=== PATIENT | male | born 1970 | race African-American/Black ===

== ENCOUNTER 2016-03-20 13:51 | Inpatient (IN) | payer SELFPAY ==
[~2016-03-20] VITALS: Ht 188 cm; Wt 138.0 kg
[2016-03-20] VITALS (11 sets, daily range): BP systolic 117–255; BP diastolic 76–137; PULSE 73–86; RESP 14–20; TEMP 96.2–98.6; O2SAT 96–100
[~2016-03-20 13:51] MED LIST: ERYT250 PO; GUAI100S6 PO; Z.0.NO CURRENT MEDS
[2016-03-20] MEDS ORDERED: SODIUM CHLORIDE 0.9% FLUSH 5 ML FLUSH IVF PRN (14:45)
--- NOTE | 2016-03-20 15:06 | PD ---
HPI Chief Complaint: Chest Pain Time Seen by Provider: 15:02 Travel History International Travel<30 days: No Contact w/Intl Traveler<30days: No Traveled to known affect area: No History of Present Illness HPI Patient is a 45-year-old male who presents emergency for evaluation of chest pain. Patient states the pain started this morning while he was at work. Patient describes the pain as pressure-like and something sitting on his chest. Initially the pain was a 7 out of 10, currently he reports the pain is 3 out of 10. Patient denies any fever, chills, nausea, vomiting, coughing, shortness of breath, headache, radiating pain. He further denies any diaphoresis. Patient states he was just diagnosed with high blood pressure, he is uncertain of the medication name but he is supposed be taking it twice a day and he's only been taking it once daily when he remembers. Patient endorses marijuana use. PFSH Past Medical History Asthma: Yes Diminished Hearing: No Hypertension: Yes Medical other: Yes (obesity) Past Surgical History Surgical History: No Previous Surgery Social History Alcohol Use: Yes (WEEKENDS 12 PK BEER/LAST ) Tobacco Use: Yes (QUIT 3 WKS AGO) Substance Use: Yes (marijuana) Allergies-Medications (Allergen,Severity, Reaction): Coded Allergies: No Known Allergies (Verified , 03/20/16) Reported Meds & Prescriptions Reported Meds & Active Scripts Active Robitussin Ac (Guaifenesin/Codeine Phosphate) Syrp 10 Ml PO Q6HPRN FOR COUGH Vlad-Tab (Erythromycin) 250 Mg Tabec 250 Mg PO QID 10 Days Reported No Current Meds (Miscellaneous Medication) [facility] Review of Systems Except as stated in HPI: all other systems reviewed are Neg General / Constitutional: No: Fever, Chills Eyes: No: Visual changes HENT: No: Headaches, Lightheadedness Cardiovascular: Positive: Chest Pain or Discomfort, No: Diaphoresis, Syncope, Edema Respiratory: No: Shortness of Breath Gastrointestinal: No: Nausea, Vomiting, Diarrhea, Abdominal Pain Musculoskeletal: No: Myalgias Neurologic: No: Weakness, Dizziness, Syncope Physical Exam Narrative GENERAL: Obese, well-developed, alert gentleman. Resting comfortably in no acute distress. SKIN: Warm and dry. HEAD: Atraumatic. Normocephalic. EYES: Pupils equal and round. No scleral icterus. No injection or drainage. ENT: No nasal bleeding or discharge. Mucous membranes pink and moist. NECK: Trachea midline. No JVD. CARDIOVASCULAR: Regular rate and rhythm. No murmur appreciated. RESPIRATORY: No accessory muscle use. Clear to auscultation. Breath sounds equal bilaterally. GASTROINTESTINAL: Abdomen obese, soft, non-tender, nondistended. Hepatic and splenic margins not palpable. Positive bowel sounds, no rebound, no guarding. MUSCULOSKELETAL: No obvious deformities. No clubbing. No cyanosis. No edema. NEUROLOGICAL: Awake and alert. No obvious cranial nerve deficits. Motor grossly within normal limits. Normal speech. PSYCHIATRIC: Appropriate mood and affect; insight and judgment normal. Data Data Last Documented VS Vital Signs Date Time Temp Pulse Resp B/P Pulse Ox O2 Delivery O2 Flow Rate FiO2 03/20/16 17:32 79 16 225/118 100 Room Air 03/20/16 15:58 98.6 03/20/16 14:57 2 Orders Electrocardiogram (03/20/16 14:36) Ckmb (Isoenzyme) Profile (03/20/16 14:36) Complete Blood Count With Diff (03/20/16 14:36) Comprehensive Metabolic Panel (03/20/16 14:36) Magnesium (Mg) (03/20/16 14:36) Prothrombin Time / Inr (Pt) (03/20/16 14:36) Act Partial Throm Time (Ptt) (03/20/16 14:36) Troponin I (03/20/16 14:36) Lipase (03/20/16 14:36) Ecg Monitoring (03/20/16 14:36) Bilateral Bp Monitoring (03/20/16 14:36) Iv Access Insert/Monitor (03/20/16 14:36) Oximetry (03/20/16 14:36) Oxygen Administration (03/20/16 14:36) Sodium Chloride 0.9% Flush (Ns Flush) (03/20/16 14:45) Chest, Single Ap (03/20/16 ) Metoprolol Tartrate Inj (Lopressor Inj) (03/20/16 15:45) CKMB (03/20/16 15:15) CKMB% (03/20/16 15:15) Hydralazine Inj (Apresoline Inj) (03/20/16 16:30) Metoprolol Tartrate Inj (Lopressor Inj) (03/20/16 17:15) Admit Order (Ed Use Only) (03/20/16 17:31) Labs Laboratory Tests Test 03/20/16 15:15 White Blood Count 7.9 TH/MM3 Red Blood Count 4.43 MIL/MM3 Hemoglobin 12.2 GM/DL Hematocrit 36.5 % Mean Corpuscular Volume 82.5 FL Mean Corpuscular Hemoglobin 27.5 PG Mean Corpuscular Hemoglobin 33.4 % Concent Red Cell Distribution Width 14.2 % Platelet Count 251 TH/MM3 Mean Platelet Volume 8.3 FL Neutrophils (%) (Auto) 58.2 % Lymphocytes (%) (Auto) 31.4 % Monocytes (%) (Auto) 6.0 % Eosinophils (%) (Auto) 3.8 % Basophils (%) (Auto) 0.6 % Neutrophils # (Auto) 4.6 TH/MM3 Lymphocytes # (Auto) 2.5 TH/MM3 Monocytes # (Auto) 0.5 TH/MM3 Eosinophils # (Auto) 0.3 TH/MM3 Basophils # (Auto) 0.0 TH/MM3 CBC Comment DIFF FINAL Differential Comment Prothrombin Time 10.6 SEC Prothromb Time International 1.0 RATIO Ratio Activated Partial 29.0 SEC Thromboplast Time Sodium Level 139 MEQ/L Potassium Level 3.5 MEQ/L Chloride Level 101 MEQ/L Carbon Dioxide Level 34.0 MEQ/L Anion Gap 4 MEQ/L Blood Urea Nitrogen 13 MG/DL Creatinine 1.35 MG/DL Estimat Glomerular Filtration 70 ML/MIN Rate Random Glucose 94 MG/DL Calcium Level 8.8 MG/DL Magnesium Level 2.1 MG/DL Total Bilirubin 0.2 MG/DL Aspartate Amino Transf 22 U/L (AST/SGOT) Alanine Aminotransferase 27 U/L (ALT/SGPT) Alkaline Phosphatase 82 U/L Total Creatine Kinase 349 U/L Creatine Kinase MB 2.1 NG/ML Creatine Kinase MB % 0.6 % Troponin I 0.03 NG/ML B-Type Natriuretic Peptide 90 PG/ML Total Protein 8.4 GM/DL Albumin 4.0 GM/DL Lipase 114 U/L MDM Medical Decision Making Medical Screen Exam Complete: Yes Emergency Medical Condition: Yes Interpretation(s) Vital Signs Date Time Temp Pulse Resp B/P Pulse Ox O2 Delivery O2 Flow Rate FiO2 03/20/16 14:57 98 Nasal Cannula 2 03/20/16 14:57 86 18 117/82 98 Nasal Cannula 2 03/20/16 14:27 96.2 73 18 188/131 97 Differential Diagnosis AMI versus unstable angina versus pleurisy versus chest wall pain versus other Narrative Course Patient is a 45-year-old male who presented to emergency, the EMS for evaluation of chest pain. Chest pain started this morning while he was at work , it has eased up somewhat since this morning. Patient was given 324 of aspirin by EMS. Labs, imaging, EKG ordered. Patient moved to medical bed, his blood pressure was assessed at 244/116, patient received Lopressor, hydralazine , enalapril for his elevated blood pressure. Pressure is beginning to normalize , clonidine by mouth ordered. Due to multiple cardiac risk factors it is advisable for pt to stay to continue to trend enzymes, ekg in the [facility]. Discussed with residents who accepted admission, due to uncontrolled blood pressure he would is more appropriate for medical bed. Patient continues to be chest pain-free. Patient is agreeable to inpatient stay. Family at bedside. Diagnosis Primary Impression: Chest pain Qualified Code: R07.89 - Other chest pain Additional Impression: Hypertensive emergency Admitting Information Admitting Physician Requests: Observation Condition: Stable Kesha Crooks Mar 20, 2016 15:06
--- NOTE | 2016-03-20 15:30 | RADRPT ---
EXAM DATE/TIME: 03/20/2016 15:02 [facility] COMPARISON: No previous studies available for comparison. INDICATIONS : Chest pain. MEDICAL HISTORY : high blood pressure. SURGICAL HISTORY : None. ENCOUNTER: Initial ACUITY: 1 day PAIN SCORE: 6/10 LOCATION: Bilateral chest FINDINGS: The lungs appear mildly hypoinflated. The lungs are otherwise grossly clear. The heart size is at the upper limits of normal. Pulmonary vasculature appears normal. Osseous structures are unremarkable. CONCLUSION: No acute disease. Holly Bolanos MD on March 20, 2016 at 15:27 Board Certified Radiologist. This report was verified electronically.
[2016-03-20] MEDS ORDERED: METOPROLOL TARTRATE 5 MG/5 ML VIAL IV PUSH ONE (15:45)
[2016-03-20 16:00] LABS: AUTOMATED NEUTROPHIL # 4.6 TH/MM3 (1.8-7.7); BASOPHIL % 0.6 % (0.0-2.0); EOSINOPHIL # 0.3 TH/MM3 (0-0.4); EOSINOPHIL % 3.8 % (0.0-4.0); HEMATOCRIT 36.5 % (39.0-51.0); HEMO FLAGS DIFF FINAL; LYMPH % 31.4 % (9.0-44.0); LYMPHOCYTE # 2.5 TH/MM3 (1.0-4.8); MEAN CELL VOLUME 82.5 FL (80.0-100.0); MEAN CORPUSCULAR HEMOGLOBIN 27.5 PG (27.0-34.0); MEAN CORPUSCULAR HGB CONC 33.4 % (32.0-36.0); NEUT % 58.2 % (16.0-70.0); PLATELET COUNT 251 TH/MM3 (150-450); RED BLOOD COUNT 4.43 MIL/MM3 (4.50-5.90); RED CELL DISTRIBUTION WIDTH 14.2 % (11.6-17.2); WHITE BLOOD COUNT 7.9 TH/MM3 (4.0-11.0)
[2016-03-20 16:12] LABS: ALT (GPT) 27 U/L (12-78); ANION GAP 4 MEQ/L (5-15); AST (GOT) 22 U/L (15-37); BLOOD UREA NITROGEN 13 MG/DL (7-18); CHLORIDE 101 MEQ/L (98-107); GLOMERULAR FILTRATION RATE 70 ML/MIN (>89); MAGNESIUM 2.1 MG/DL (1.5-2.5); POTASSIUM 3.5 MEQ/L (3.5-5.1); SODIUM (NA) 139 MEQ/L (136-145)
[2016-03-20 16:16] LABS: ALKALINE PHOSPHATASE 82 U/L (45-117); CREATINE KINASE 349 U/L (39-308); TOTAL BILIRUBIN ADULT 0.2 MG/DL (0.2-1.0)
[2016-03-20 16:28] LABS: CKMB 2.1 NG/ML (0.5-3.6)
[2016-03-20] MEDS ORDERED: hydrALAZINE HCL 20 MG/ML VIAL IV PUSH ONE (16:30)
[2016-03-20] MEDS: METOPROLOL TARTRATE 5 MG/5 ML VIAL IVS SCH ×2 (17:15→17:55)
[2016-03-20 17:16] LABS: PROTHROMBIN TIME - PATIENT 10.6 SEC (9.8-11.6)
--- NOTE | 2016-03-20 17:29 | HHI.HP ---
[facility] Service Family Medicine Primary Care Physician No Primary Care Physician Admission Diagnosis Diagnoses: International Travel<30 Days: No Contact w/Intl Traveler<30days: No Known Affected Area: No History of Present Illness 45y male with HTN and asthma presents with chest pain x1 day. It is a sternal, non-radiating chest tightness that began at his shift at work this morning. It decreased somewhat with time, but is still present several hours in the ED. Relieved minimally by "relaxing" but not much by medications so far given in ED. No exacerbating factors, even exercise- he rode his bike 20 minutes home from work without change in this pain. He denies history of GERD or acid burning in stomach. Does report burping and feeling acid sensation. He also presented to ED with hypertensive emergency, with B/P 260/ 120. Denies KAT, blurry vision, nausea, vomiting, or palpitations. Diagnosed with hypertension 2 months ago when he presented to the [facility] with headache and dizziness. Prescribed a twice day medicine, "starts with C", he takes once a day. Review of Systems Constitutional: COMPLAINS OF: Weight loss (intentional), DENIES: Fever, Chills , Dizziness Eyes: DENIES: Blurred vision, Double Vision Respiratory: COMPLAINS OF: Snoring, Shortness of breath (baseline), DENIES: Cough, Wheezing, Sputum production Cardiovascular: COMPLAINS OF: Chest pain, DENIES: Palpitations, Syncope, Dyspnea on Exertion, Lower Extremity Edema, Claudication Gastrointestinal: DENIES: Abdominal pain, Nausea, Vomiting Integumentary: DENIES: Abnormal pigmentation Neurologic: DENIES: Headache, Localized weakness, Speech Problems Psychiatric: DENIES: Mood changes Past Family Social History Past Medical History Absent from medical care HTN Asthma Likely sleep apnea "falls asleep anywhere" Past Surgical History Denies Reported Medications "Blood pressure medicine starts with c" BID (clonidine? cardiazem?) Allergies: Coded Allergies: No Known Allergies (Verified , 03/20/16) Family History Mother- HTN, pre-diabetes Father- unknown Sister- healthy Social History Works at [employer], used to work for [employer] Tobacco: denies Alcohol: 1x/week, occasional beer RD: Marijuana, denies cocaine Physical Exam Vital Signs Vital Signs Date Time Temp Pulse Resp B/P Pulse Ox O2 Delivery O2 Flow Rate FiO2 03/20/16 17:09 79 16 255/137 100 Room Air 03/20/16 16:21 82 16 211/116 98 Room Air 03/20/16 15:58 98.6 76 16 233/124 98 Room Air 03/20/16 14:57 98 Nasal Cannula 2 03/20/16 14:57 78 18 121/76 98 Room Air 03/20/16 14:57 86 18 117/82 98 Nasal Cannula 2 03/20/16 14:27 96.2 73 18 188/131 97 Physical Exam CONST: Obese AA male in NAD. DERM: Warm and dry HEENT: PERRL. EOMI. No nystagmus. MMM CV: RRR. No murmurs or gallops. Radial pulses 2+. Chest pain not reproducible by palpation or inspiration. RESP: Good air movement. Lungs CTAB. No wheezing. GI: Abdomen obese, soft. Mild tenderness to palpation RUQ. No hepatomegally. + BS MSK: Moves all four limbs against gravity. NEURO: No focal deficits. AAOx3. No facial droop. 5/5 strength UE/LE. SILT x4. Motor and sensory function grossly intact. PSYCH: Appropriate affect. Limited knowledge of medicine, but good insight Laboratory Laboratory Tests Test 03/20/16 15:15 White Blood Count 7.9 Red Blood Count 4.43 Hemoglobin 12.2 Hematocrit 36.5 Mean Corpuscular Volume 82.5 Mean Corpuscular Hemoglobin 27.5 Mean Corpuscular Hemoglobin 33.4 Concent Red Cell Distribution Width 14.2 Platelet Count 251 Mean Platelet Volume 8.3 Neutrophils (%) (Auto) 58.2 Lymphocytes (%) (Auto) 31.4 Monocytes (%) (Auto) 6.0 Eosinophils (%) (Auto) 3.8 Basophils (%) (Auto) 0.6 Neutrophils # (Auto) 4.6 Lymphocytes # (Auto) 2.5 Monocytes # (Auto) 0.5 Eosinophils # (Auto) 0.3 Basophils # (Auto) 0.0 CBC Comment DIFF FINAL Differential Comment Prothrombin Time 10.6 Prothromb Time International 1.0 Ratio Activated Partial 29.0 Thromboplast Time Sodium Level 139 Potassium Level 3.5 Chloride Level 101 Carbon Dioxide Level 34.0 Anion Gap 4 Blood Urea Nitrogen 13 Creatinine 1.35 Estimat Glomerular Filtration 70 Rate Random Glucose 94 Calcium Level 8.8 Magnesium Level 2.1 Total Bilirubin 0.2 Aspartate Amino Transf 22 (AST/SGOT) Alanine Aminotransferase 27 (ALT/SGPT) Alkaline Phosphatase 82 Total Creatine Kinase 349 Creatine Kinase MB 2.1 Creatine Kinase MB % 0.6 Troponin I 0.03 Total Protein 8.4 Albumin 4.0 Lipase 114 Result Diagram: 03/20/16 1515 03/20/16 1515 Imaging Last Impressions Chest X-Ray 03/20/16 0000 Signed Impressions: Service Date/Time: Sunday, March 20, 2016 15:02 - CONCLUSION: No acute disease. Holly Bolanos MD Assessment and Plan Assessment and Plan 45y AA male with HTN and asthma presents with chest pain. Code Status Full Discussed Condition With DW: Dr. Lawrence, Dr. Maher Problem List: (1) Hypertensive emergency Status: Acute Plan: On admit, B/P 260/120. Lower B/P slowly. Goal SBP <220. Plan -Admit to observation -Vitals q4h, Monitor I/O, OOB ad susy, Heart Healthy Diet -ACS rule out, trend Trops, CK, EKG x3 Trop-1: 0.03 CK-MB-1: wnl EKG-1: -BNP pending -U/A, UDS pending -S/p metoprolol IV x2, hydralazine 10mg IV x1, vasotec 5mg IV x1 in ED -Enalapril PRN for SBP 220+ -Consider discharge with thiazide vs CCB (2) Chest pain Status: Acute Plan: Sternal nonradiating chest pain x1 day. Ddx: Symptomatic HTN emergency vs GERD vs ACS vs Anxiety -Ranitidine 150mg BID for GERD ppx -see HTN emergency (3) Asthma Status: Chronic Plan: -Albuterol neb q4h PRN (4) Creatinine elevation Status: Acute Plan: Unknown baseline. Cr 1.3 on admit -MIVF -Daily BMP (5) Morbid obesity with BMI of 40.0-44.9, adult Status: Chronic Plan: -diet and exercise counseling provided (6) FEN/PPX Status: Chronic Plan: Fluids: MIVF- NS@ 180mL/hr Electrolytes: wnl Nutrition: Heart healthy diet DVT ppx: Lovenox 40mg SQ GI ppx: for gastritis, ranitidine Physician Certification 2 Midnight Certification Type: Admission for Inpatient Services Order for Inpatient Services The services are ordered in accordance with Medicare regulations or non- Medicare payer requirements, as applicable. In the case of services not specified as inpatient-only, they are appropriately provided as inpatient services in accordance with the 2-midnight benchmark. Estimated LOS (days): 2 days is the estimated time the patient will need to remain in the hospital, assuming treatment plan goals are met and no additional complications. Post-Hospital Plan: Home Problem Qualifiers (1) Chest pain: Qualified Code: R07.89 - Other chest pain (2) Asthma: Qualified Code: J45.909 - Uncomplicated asthma, unspecified asthma severity Mariann Trinidad MD R1 Mar 20, 2016 17:29
[2016-03-20] MEDS ORDERED: ENALAPRILAT 2.5 MG/2 ML VIAL IV PUSH ONE (18:00)
[2016-03-20] MEDS ORDERED: cloNIDine HCL 0.1 MG TAB PO ONE (18:45)
[2016-03-20] MEDS ORDERED: NALOXONE HCL 0.4 MG/ML AMP IV PRN (19:00)
[2016-03-20] MEDS ORDERED: SODIUM CHLORIDE 0.9% FLUSH 5 ML FLUSH FLUSH PRN (19:00)
[2016-03-20] MEDS ORDERED: ENALAPRILAT 1.25 MG/ML VIAL IV PRN (19:00)
[2016-03-20] MEDS ORDERED: ACETAMINOPHEN 325 MG TAB PO PRN (19:00)
[2016-03-20] MEDS ORDERED: RESP: ALBUTEROL 2.5 MG/3 ML NEB (SCH) NEB ONE (19:30)
[2016-03-20] MEDS ORDERED: RESP: ALBUTEROL 2.5 MG/3 ML NEB (SCH) NEB (19:30)
[2016-03-20] MEDS: SODIUM CHLORIDE 0.9% FLUSH 5 ML FLUSH FLUSH SCH (20:49)
[2016-03-20] MEDS: SODIUM CHLOR 0.9% 1000 ML INJ 1,000 ML IV SCH (20:49)
[2016-03-20] MEDS: FAMOTIDINE 20 MG TAB PO SCH ×2 (20:51→20:56)
[2016-03-21] VITALS (29 sets, daily range): BP systolic 156–222; BP diastolic 80–118; PULSE 72–86; RESP 16–22; TEMP 97.6–98.9; O2SAT 94–99
[2016-03-21] MEDS ORDERED: CLON0.1T PO (01:48)
[2016-03-21] MEDS: SODIUM CHLOR 0.9% 1000 ML INJ 1,000 ML IV SCH (01:53)
[2016-03-21 03:04] LABS: HEMATOCRIT 33.4 % (39.0-51.0); MEAN CELL VOLUME 81.6 FL (80.0-100.0); MEAN CORPUSCULAR HEMOGLOBIN 27.3 PG (27.0-34.0); MEAN CORPUSCULAR HGB CONC 33.4 % (32.0-36.0); PLATELET COUNT 238 TH/MM3 (150-450); RED BLOOD COUNT 4.09 MIL/MM3 (4.50-5.90); RED CELL DISTRIBUTION WIDTH 14.4 % (11.6-17.2); REVIEW FLAG FINAL; WHITE BLOOD COUNT 7.3 TH/MM3 (4.0-11.0)
[2016-03-21 03:46] LABS: BICARBONATE 30.7 MEQ/L (21.0-32.0); POTASSIUM 3.3 MEQ/L (3.5-5.1)
[2016-03-21] MEDS ORDERED: RESP: ALBUTEROL 2.5 MG/3 ML NEB (PRN) NEB (06:00)
[2016-03-21] MEDS ORDERED: POTASSIUM CHLORIDE 20 MEQ CONTROLLED RELEASE TAB PO ONE (07:30)
--- NOTE | 2016-03-21 08:55 | HHI.FPPN ---
Subjective Remarks Patient seen and examined this am. BP remains elevated overnight and this am. He denies CP, SOB, or difficulty breathing. Tolerated diet. No overnight events, feels well no complaints this am. (Allyn Huerta MD R3) Objective Vitals Vital Signs Date Time Temp Pulse Resp B/P Pulse Ox O2 Delivery O2 Flow Rate FiO2 03/21/16 07:26 99 21 03/21/16 05:00 74 03/21/16 04:00 74 20 182/104 94 03/21/16 03:20 185/118 03/21/16 03:15 198/115 03/21/16 03:10 215/106 03/21/16 03:05 98.6 75 20 210/108 94 03/21/16 03:00 75 03/21/16 02:00 89 16 100 03/21/16 01:49 78 18 222/107 97 Room Air 03/21/16 00:00 72 22 183/89 99 Room Air 03/20/16 22:00 82 18 160/101 99 Room Air 03/20/16 20:51 77 18 174/84 99 Room Air 03/20/16 19:00 74 16 96 Room Air 03/20/16 19:00 98.6 74 16 195/106 96 03/20/16 18:56 73 20 188/99 100 Room Air 03/20/16 17:56 78 14 209/104 100 Room Air 03/20/16 17:32 79 16 225/118 100 Room Air 03/20/16 17:09 79 16 255/137 100 Room Air 03/20/16 16:21 82 16 211/116 98 Room Air 03/20/16 15:58 98.6 76 16 233/124 98 Room Air 03/20/16 14:57 98 Nasal Cannula 2.00 03/20/16 14:57 98 Nasal Cannula 2 03/20/16 14:57 78 18 121/76 98 Room Air 03/20/16 14:57 86 18 117/82 98 Nasal Cannula 2 03/20/16 14:27 96.2 73 18 188/131 97 I/O 03/20/16 03/20/16 03/20/16 03/21/16 03/21/16 03/21/16 07:00 15:00 23:00 07:00 15:00 23:00 Intake Total 720 ml Output Total 600 ml 0 ml Balance -600 ml 720 ml Intake Oral 220 ml IV Total 500 ml Output Urine Total 600 ml 0 ml # Voids 1 (Allyn Huerta MD R3) Result Diagram: 03/21/16 0241 03/21/16 0241 Imaging Last Impressions Chest X-Ray 03/20/16 0000 Signed Impressions: Service Date/Time: Friday, March 20, 2016 15:02 - CONCLUSION: No acute disease. Holly Bolanos MD Objective Remarks GENERAL: laying down comfortably, nad SKIN: Warm and dry. HEAD: Atraumatic. Normocephalic. EYES: Pupils equal and round. No scleral icterus. No injection or drainage. ENT: No nasal bleeding or discharge. Mucous membranes pink and moist. NECK: Trachea midline. No JVD. CARDIOVASCULAR: Regular rate and rhythm. RESPIRATORY: No accessory muscle use. Clear to auscultation. Breath sounds equal bilaterally. GASTROINTESTINAL: Abdomen soft, non-tender, nondistended. Hepatic and splenic margins not palpable. MUSCULOSKELETAL: Extremities without clubbing, cyanosis, or edema. No obvious deformities. NEUROLOGICAL: Awake and alert. No obvious cranial nerve deficits. Motor grossly within normal limits. Normal speech. PSYCHIATRIC: Appropriate mood and affect; insight and judgment normal. (Allyn Huerta MD R3) A/P Assessment and Plan 45y AA male with HTN and asthma presents with chest pain found to have hypertensive urgency. Discharge Planning D/C pending stabilization of BP. Likely this evening or tomorrow am. Seen and discussed with Drs. Lawrence and Amos (Allyn Huerta MD R3) Attending Attestation Patient seen and examined. Case reviewed and discussed with the resident team, Dr Huerta, Dr Maher, Dr Trinidad and Dr Solomon. Agree with plan of care as discussed with me and documented in the resident note (Darrell Lawrence MD) Problem List: (1) Hypertensive emergency Status: Acute Plan: BP elevated overnight and this am. - Will start Norvasc 10 mg this am - Will likely need a second agent, consider adding hctz if BP remains elevated (2) Chest pain Status: Resolved Plan: Resolved. Ddx: Symptomatic HTN emergency vs GERD vs ACS vs Anxiety -ACS rule out negative, troponins negative x3, EKG shows left axis deviation ( likely from uncontrolled HTN) -See HTN emergency -admits to [facility] use, will obtain UDS to r/o cocaine use (3) Asthma Status: Chronic Plan: -Albuterol neb q4h PRN (4) Creatinine elevation Status: Resolved Plan: Unknown baseline. Cr 1.3 on admit, now 1.25 wnl - s/p IVF (5) Morbid obesity with BMI of 40.0-44.9, adult Status: Chronic Plan: -diet and exercise counseling provided (6) FEN/PPX Status: Chronic Plan: Fluids: HLIV Electrolytes: wnl Nutrition: Heart healthy diet DVT ppx: Lovenox 40mg SQ (Allyn Huerta MD R3) Problem Qualifiers (1) Chest pain: Qualified Code: R07.89 - Other chest pain (2) Asthma: Qualified Code: J45.909 - Uncomplicated asthma, unspecified asthma severity Allyn Huerta MD R3 Mar 21, 2016 08:55 Darrell Lawrence MD Mar 22, 2016 14:34
[2016-03-21] MEDS: FAMOTIDINE 20 MG TAB PO SCH ×2 (09:25→20:19)
[2016-03-21] MEDS: SODIUM CHLORIDE 0.9% FLUSH 5 ML FLUSH FLUSH SCH ×2 (09:27→20:19)
[2016-03-21] MEDS ORDERED: POTASSIUM CHLORIDE 10 MEQ CONTROLLED RELEASE TAB PO ONE (17:00)
[2016-03-21] MEDS ORDERED: HYDROCHLOROTHIAZIDE 25 MG TAB PO ONE (18:00)
[2016-03-21] MEDS: ENALAPRILAT 1.25 MG/ML VIAL IV PRN (20:20)
--- NOTE | 2016-03-21 21:19 | EKG ---
Date Performed: 03/20/2016 Time Performed: 13:48:17 PTAGE: 45 years EKG: Sinus rhythm WITH FIRST DEGREE AV BLOCK LEFT VENTRICULAR HYPERTROPHY AND ST-T CHANGE ABNORMAL ECG NO PREVIOUS TRACING DOCTOR: Darci Dow Interpretating Date/Time 03/21/2016 21:09:29
[2016-03-22] VITALS (19 sets, daily range): BP systolic 160–196; BP diastolic 98–124; PULSE 75–91; RESP 20; TEMP 97.9–98.2; O2SAT 93–98
[2016-03-22] MEDS: ENALAPRILAT 1.25 MG/ML VIAL IV PRN (06:02)
[2016-03-22] MEDS ORDERED: HYDROCHLOROTHIAZIDE 25 MG TAB PO SCH ×2 (08:00→09:00)
[2016-03-22 08:50] LABS: HEMATOCRIT 39.7 % (39.0-51.0); MEAN CELL VOLUME 81.8 FL (80.0-100.0); MEAN CORPUSCULAR HEMOGLOBIN 27.5 PG (27.0-34.0); MEAN CORPUSCULAR HGB CONC 33.7 % (32.0-36.0); PLATELET COUNT 271 TH/MM3 (150-450); RED BLOOD COUNT 4.86 MIL/MM3 (4.50-5.90); RED CELL DISTRIBUTION WIDTH 14.4 % (11.6-17.2); REVIEW FLAG FINAL; WHITE BLOOD COUNT 7.9 TH/MM3 (4.0-11.0)
[2016-03-22] MEDS: FAMOTIDINE 20 MG TAB PO SCH (08:55)
[2016-03-22] MEDS: SODIUM CHLORIDE 0.9% FLUSH 5 ML FLUSH FLUSH SCH (08:56)
[2016-03-22 09:21] LABS: BICARBONATE 28.2 MEQ/L (21.0-32.0); POTASSIUM 3.9 MEQ/L (3.5-5.1)
[2016-03-22] MEDS ORDERED: PNEUMOCOCCAL POLYVALENT INJ 25 MCG/0.5 ML SYR IM ONE (10:00)
--- NOTE | 2016-03-22 10:10 | HHI.FPPN ---
Subjective Remarks No acute issues overnight. Vitals are stable, patient remains afebrile. BP remains elevated ranging 150-190's/80-120's. Overall, he feels well this morning. He denies any chest pain, shortness of breath, fever, chills, nausea or vomiting. He is tolerating PO. Objective Vitals Vital Signs Date Time Temp Pulse Resp B/P Pulse Ox O2 Delivery O2 Flow Rate FiO2 03/22/16 07:17 98 21 03/22/16 07:00 97.9 81 196/124 93 03/22/16 06:00 91 03/22/16 05:00 91 03/22/16 04:27 98.2 82 170/113 95 03/22/16 04:00 76 03/22/16 03:00 75 03/22/16 02:00 79 03/22/16 01:00 79 03/22/16 00:00 78 03/21/16 23:00 75 03/21/16 23:00 97.7 82 156/80 97 03/21/16 22:00 80 03/21/16 21:00 81 03/21/16 20:00 86 03/21/16 19:00 83 03/21/16 19:00 98.1 85 194/112 97 03/21/16 18:07 98.1 84 16 198/108 98 03/21/16 18:00 84 03/21/16 17:00 83 03/21/16 16:00 79 03/21/16 15:23 85 03/21/16 14:06 79 03/21/16 13:42 79 03/21/16 13:24 97.6 78 18 165/103 97 03/21/16 12:00 78 03/21/16 11:49 80 I/O 03/21/16 03/21/16 03/21/16 03/22/16 03/22/16 03/22/16 07:00 15:00 23:00 07:00 15:00 23:00 Intake Total 720 ml 800 ml 1800 ml 240 ml Output Total 0 ml 450 ml 2200 ml 1400 ml Balance 720 ml 350 ml -400 ml -1160 ml Intake Oral 220 ml 400 ml 600 ml 240 ml IV Total 500 ml 400 ml 1200 ml Output Urine Total 0 ml 450 ml 2200 ml 1400 ml Result Diagram: 03/22/16 0815 03/22/16 0814 Imaging Last Impressions Chest X-Ray 03/20/16 0000 Signed Impressions: Service Date/Time: Sunday, March 20, 2016 15:02 - CONCLUSION: No acute disease. 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 SKIN: Warm and dry. HEAD: Atraumatic. Normocephalic. EYES: Pupils equal and round. No scleral icterus. No injection or drainage. ENT: No nasal bleeding or discharge. Mucous membranes pink and moist. NECK: Trachea midline. No JVD. CARDIOVASCULAR: Regular rate and rhythm. No murmur. RESPIRATORY: No accessory muscle use. Clear to auscultation bilaterally. Breath sounds equal bilaterally. GASTROINTESTINAL: Abdomen soft, non-tender, nondistended. Hepatic and splenic margins not palpable. MUSCULOSKELETAL: Extremities without clubbing, cyanosis, or edema. No obvious deformities. NEUROLOGICAL: Awake and alert. No obvious cranial nerve deficits. Motor grossly within normal limits. Normal speech. PSYCHIATRIC: Appropriate mood and affect; insight and judgment normal. A/P Assessment and Plan 45y AA male with HTN and asthma who presented with chest pain was found to have hypertensive urgency. Discharge Planning Anticipate discharge today. dw Dr. Lawrence and Dr. Trinidad Problem List: (1) Hypertensive emergency Status: Acute Plan: BP remains elevated - Continue Norvasc 10 mg PO daily - HCTZ 25mg PO daily, increase dose as needed - Counseling provided regarding DASH diet and exercise (2) Chest pain Status: Resolved Plan: Resolved. -ACS rule out negative -Likely secondary to elevated BP (3) Asthma Status: Chronic Plan: -Albuterol neb q4h PRN (4) Creatinine elevation Status: Resolved Plan: Creatinine slightly elevated at 1.35 on admission Creatinine wnl today at 1.30 (5) Morbid obesity with BMI of 40.0-44.9, adult Status: Chronic Plan: -diet and exercise counseling provided (6) FEN/PPX Status: Chronic Plan: Fluids: None Electrolytes: wnl Nutrition: Heart healthy diet DVT ppx: Lovenox 40mg SQ Problem Qualifiers (1) Chest pain: Qualified Code: R07.89 - Other chest pain (2) Asthma: Qualified Code: J45.909 - Uncomplicated asthma, unspecified asthma severity Malina Carter MD R2 Mar 22, 2016 10:10
[2016-03-22] MEDS ORDERED: AMLO10 PO (10:16)
[2016-03-22] MEDS ORDERED: HYDR25TA5 PO (10:16)
--- NOTE | 2016-03-22 10:16 | HHI.DCPOC ---
Discharge Care Plan Diagnosis: (1) Hypertensive emergency Goals to Promote Your Health * To prevent worsening of your condition and complications * To maintain your health at the optimal level Directions to Meet Your Goals Take your medications as prescribed Follow your dietary instruction Follow activity as directed Keep your appointments as scheduled Take your immunizations and boosters as scheduled If your symptoms worsen call your PCP, if no PCP go to Urgent Care Center or Emergency Room Smoking is Dangerous to Your Health. Avoid second hand smoke Call the 24-hour hour crisis hotline for domestic abuse at Malina Carter MD R2 Mar 22, 2016 10:16
[2016-03-22] MEDS ORDERED: HYDR10TA23 PO (12:50)
[2016-03-22] MEDS: hydrALAZINE HCL 10 MG TAB PO SCH ×2 (13:00→14:00)
== END 2016-03-22 16:07 | disposition home or self-care (01) | DRG 305 ==
LOC: NEDAMB 13:51 → NEDA 17:33 → HCPC 03-21 02:10
PROVIDERS: ADMIT Family Medicine; ATTEND Family Medicine
DX: I16.1 Hypertensive emergency (principal); E66.01 Morbid (severe) obesity due to excess calories; J45.909 Unspecified asthma, uncomplicated; R07.9 Chest pain, unspecified; Z68.39 Body mass index [BMI] 39.0-39.9, adult; I10 Essential (primary) hypertension; F12.90 Cannabis use, unspecified, uncomplicated; K29.70 Gastritis, unspecified, without bleeding; Z87.891 Personal history of nicotine dependence; Z23 Encounter for immunization
CPT/HCPCS: 71010; 80048; 80053; 82550; 82552; 83690; 83735; 83880; 84484; 85025; 85027; 85610; 85730; 90732; 93005; 94664; 96374; 96375; 96376; J0360; J7030; J7613

== ENCOUNTER 2017-11-20 18:43 | Observation (INO) ==
[2017-11-20] MEDS ORDERED: Metoprolol Tartrate 50 MG Tablet PO ONE (20:03)
--- NOTE | 2017-11-20 20:08 | ED ---
HPI General Chief Complaint: Chest Pain Stated Complaint: chest pain/swollen feet/xfew days Time Seen by Provider: 11/20/17 19:48 Source: patient Mode of arrival: ambulatory Limitations: no limitations History of Present Illness MD complaint: chest pain STEMI Alert: No Onset (ago): day(s) (1) Duration: intermittent Onset: during exertion Pain location: substernal Severity: mild Severity scale (1-10): 2 Quality: sharp Pain radiation: none Relieving factors: nothing Exacerbating factors: exertion Associated symptoms: leg swelling Treatments prior to arrival chest pain: none Related Data Home Medications Medication Instructions Recorded Confirmed No Known Home Medications 11/20/17 11/20/17 Allergies Allergy/AdvReac Type Severity Reaction Status Date / Time No Known Allergies Allergy Unverified 11/20/17 19:09 Review of Systems ROS: all other systems reviewed are negative [facility] Medical History Medical History History of angina (Acute) Hypertension (Acute) Social History Social History Substance History: Active Abuse Second Hand Smoke Exposure: Yes Smoking Status: Never smoker How Often Do You Have a Drink Containing Alcohol: 2 to 4 times a month Recent Travel in [facility] within the Last 8 Weeks: No Recent Out of Country Travel within the Last 8 Weeks: No Substance Abuse Detail Marijuana: Substance Use Status: Active Route Used Substance Abuse: Inhalation Substance Frequency: occasional Reason for Use: Get High Immunization History Tetanus Immunization: Unsure Hx Influenza Vaccine This Season: No Exam Const General: cooperative, healthy appearing and comfortable Orientation: alert, awake and oriented x3 HENMT Head: normal to inspection, normocephalic and atraumatic Eyes General: appearance normal, both eyes and all related structures Conjunctivae: conjunctivae normal Sclera: sclerae normal EOM: EOM intact bilaterally Neck Neck: normal visual inspection and full ROM Chest Chest: normal inspection of the chest Resp Effort & Inspection: normal respiratory effort and able to speak in complete sentences Auscultation: clear to auscultation bilaterally Cardio Rate: regular rate Rhythm: regular rhythm Heart Sounds: S1 normal and S2 normal GI Inspection: normal to inspection Palpation: soft Back/Spine/Pelvis Cervical Spine: cervical ROM normal Thoracic/Lumbar Spine: thoraco-lumbar ROM normal Skin General: no rashes or lesions noted, turgor normal and dry skin Neuro General: alert, awake, oriented x3, moves all extremities and CN's II-XI intact bilaterally Extrem General: normal to inspection, full ROM, no pedal edema and edema Laterality: bilaterally (1-2+) Psych Appearance: grossly normal Mental Status: mental status grossly normal Speech and Movement: speech and movement normal Mood: congruent mood Affect: normal affect Attitude: cooperative Thought Process: normal Thought Content: normal Judgment: judgment good Course Reevaluation(s) Reevaluation #1: Patient reports no chest pain at present. However, his most recent blood pressure was 206/133. He has been treated with Nitropaste and metoprolol. I am told that the chest pain center will not accept a patient with this blood pressure. Therefore, I have requested admission to the resident 's service. Time: 21:08 Consultations Consultation #1: Dr. Ho from [facility]. She has suggested a Cardizem drip which has been ordered. Time: 21:40 Initial Documented Vital Signs Temperature 98.0 F 11/20/17 19:10 Pulse Rate 94 H 11/20/17 19:10 Respiratory Rate 16 11/20/17 19:10 Blood Pressure 183/115 H 11/20/17 19:10 Pulse Oximetry 97 11/20/17 19:10 Last Documented Vital Signs Temperature 98.0 F 11/20/17 19:10 Pulse Rate 75 11/20/17 21:25 Respiratory Rate 18 11/20/17 21:25 Blood Pressure 187/119 H 11/20/17 21:25 Pulse Oximetry 96 11/20/17 21:25 Critical Care Time Critical Care Time: Yes Total Critical Care Time: 45 Attestation: Time to perform other separately billable procedures was not included in the critical care time. My time did not include minutes spent treating any other patients simultaneously or on activities that did not directly contribute to the patient's treatment. The services I provided to this patient were to treat and/or prevent clinically significant deterioration due to chest pain and hypertension, rule out ACS. I provided critical care services requiring my management, as noted below: Chart data review, documentation time, medication orders and management, vital sign assessments/reviewing monitor data, ordering and reviewing lab tests, ordering and interpreting/reviewing x-rays and diagnostic studies, care of the patient and discussion of the patient with the admitting physicians Medical Decision Making MDM Narrative Medical decision making narrative: This is a patient who has a history of hypertension who has been noncompliant with medications for quite some time because of cost who presents with chief complaint intermittent chest pain since yesterday associated with swelling of both lower legs. Chest pain workup has been initiated. He is being treated in the emergency department with aspirin, Nitropaste, metoprolol. Depending upon his enzymes, he will either be admitted to the hospital or to the chest pain center. Medical Screen Exam Complete: Yes Emergency Medical Condition: Yes Medical Records Medical records reviewed: Yes I reviewed the patient's medical records. The patient has been here before in the remote past for chest pain associated with very high blood pressure. Lab Data Lab results reviewed: Yes I reviewed the patient's lab results. Result diagrams: 11/20/17 20:08 11/20/17 20:08 Lab Results 11/20/17 11/20/17 11/20/17 Range/Units 20:08 20:08 20:08 WBC 8.1 (4.0-11.0) th/mm3 RBC 4.23 L (4.50-5.90) mil/mm3 Hgb 11.9 L (13.0-17.0) gm/dL Hct 35.5 L (39.0-51.0) % MCV 83.9 (80.0-100.0) fL MCH 28.1 (27.0-34.0) pg MCHC 33.4 (32.0-36.0) % RDW 15.6 (11.6-17.2) % Plt Count 241 (150-450) th/mm3 MPV 8.1 (7.0-11.0) fL Neut % (Auto) 58.7 (16.0-70.0) % Lymph % (Auto) 27.9 (9.0-44.0) % [place] % (Auto) 8.6 H (0.0-8.0) % Eos % (Auto) 4.1 H (0.0-4.0) % Baso % (Auto) 0.7 (0.0-2.0) % Neut # (Auto) 4.7 (1.8-7.7) th/mm3 Lymph # (Auto) 2.3 (1.0-4.8) th/mm3 [place] # (Auto) 0.7 (0.0-0.9) th/mm3 Eos # (Auto) 0.3 (0.0-0.4) th/mm3 Baso # (Auto) 0.1 (0.0-0.2) th/mm3 WBC Differential . Differential Comment Auto diff final Sodium 141 (136-145) meq/L Potassium 3.6 (3.5-5.1) meq/L Chloride 105 (98-107) meq/L Carbon Dioxide 29.6 (21.0-32.0) meq/L Anion Gap 6 (5-15) meq/L BUN 12 (7-18) mg/dL Creatinine 1.37 H (0.60-1.30) mg/dL Estimated GFR 68 L (>89) mL/min Random Glucose 105 (74-106) mg/dL Calcium 8.2 L (8.5-10.1) mg/dL Total Bilirubin 0.4 (0.2-1.0) mg/dL AST 40 H (15-37) U/L ALT 60 (12-78) U/L Alkaline Phosphatase 72 (45-117) U/L Troponin I 0.05 (0.02-0.05) ng/mL B-Natriuretic Peptide 161 H (0-100) pg/mL Total Protein 8.1 (6.4-8.2) g/dL Albumin 3.7 (3.4-5.0) g/dL Imaging Data Attestation: I personally reviewed and interpreted this imaging study as follows : My impression: Cardiomegaly Radiologist's impression: Chest X-Ray 11/20/17 19:52 CONCLUSION: No acute findings. ECG Data EKG Prior to Arrival: No Attestation: I personally reviewed and interpreted this ECG as follows: (Normal sinus rhythm. Rate 86. No acute STT wave changes.) Discharge Plan Discharge Disposition Patient Disposition: 30 Still Patient Discharge Details Diagnosis: Hypertensive urgency, Chest pain, Edema, peripheral Physicians Team ED Provider: Dara Beth Primary Care Provider: Primary Care Lisa Steele Rxs /Orders / Referrals /Forms Prescriptions: No Action No Known Home Medications RF: 0 Discharge Instructions Patient Printed Instructions: Chest Pain (ED) Status ED Status: Pending Admission
[2017-11-20 20:20] LABS: Baso # (Auto) 0.1 th/mm3 (0.0-0.2); Baso % (Auto) 0.7 % (0.0-2.0); Eos # (Auto) 0.3 th/mm3 (0.0-0.4); Eos % (Auto) 4.1 % (0.0-4.0); Hematocrit 35.5 % (39.0-51.0); Hemoglobin 11.9 gm/dL (13.0-17.0); Lymph # (Auto) 2.3 th/mm3 (1.0-4.8); Lymph % (Auto) 27.9 % (9.0-44.0); Mean Corpuscular HGB Conc 33.4 % (32.0-36.0); Mean Corpuscular Hemoglobin 28.1 pg (27.0-34.0); Mean Corpuscular Volume 83.9 fL (80.0-100.0); Mean Platelet Volume 8.1 fL (7.0-11.0); Mono # (Auto) 0.7 th/mm3 (0.0-0.9); Mono % (Auto) 8.6 % (0.0-8.0); Neut # (Auto) 4.7 th/mm3 (1.8-7.7); Neut % (Auto) 58.7 % (16.0-70.0); Platelet Count 241 th/mm3 (150-450); Red Blood Count 4.23 mil/mm3 (4.50-5.90); Red Cell Distribution Width 15.6 % (11.6-17.2); White Blood Count 8.1 th/mm3 (4.0-11.0)
--- NOTE | 2017-11-20 20:30 | XR ---
EXAM DATE: 11/20/2017 8:19 PM EDT AGE/SEX: 47 years / Male INDICATIONS: Bilateral lower extremity swelling with some shortness of breath. CLINICAL DATA: This is the patient's initial encounter. Patient reports that signs and symptoms have been present for 2 weeks and indicates a pain score of 3/10. MEDICAL/SURGICAL HISTORY: Hypertension. None. COMPARISON: [facility], CHEST SINGLE AP, 03/20/2016. . FINDINGS: A single AP view of the chest demonstrates the lungs to be symmetrically aerated without evidence of mass, infiltrate or effusion. The cardiomediastinal contours are mildly prominent. Osseous structure s are intact. CONCLUSION: No acute findings. Electronically signed by: Srikanth Linares MD 11/20/2017 8:28 PM EDT
[2017-11-20 20:43] LABS: Albumin 3.7 g/dL (3.4-5.0); Anion Gap 6 meq/L (5-15); Aspartate Aminotransferase 40 U/L (15-37); Blood Urea Nitrogen 12 mg/dL (7-18); Calcium 8.2 mg/dL (8.5-10.1); Carbon Dioxide 29.6 meq/L (21.0-32.0); Chloride 105 meq/L (98-107); Glomerular Filtration Rate 68 mL/min (>89); Glucose,Random 105 mg/dL (74-106); Potassium 3.6 meq/L (3.5-5.1); Sodium 141 meq/L (136-145)
[2017-11-20 20:48] LABS: Alanine Aminotransferase 60 U/L (12-78); Alkaline Phosphatase 72 U/L (45-117); Total Protein 8.1 g/dL (6.4-8.2); Troponin I 0.05 ng/mL (0.02-0.05)
[2017-11-20] MEDS ORDERED: dilTIAZem Inj 125 MG in Sodium Chlor 0.9% Inj 100 ML IV.CONT PRN (21:37)
--- NOTE | 2017-11-20 22:26 | P.HPFP ---
History of Present Illness Primary Care Physician: No Primary Care Physician History of Present Illness: Patient is a 47-year-old -[place] male with a past medical history of hypertension that presented to the [place] ED with a chief complaint of chest pain of 2 days' duration. The chest pain began while he was working at [employer] on the previous day. He describes the pain as 3-5/10 sharp pain located in his midsternal area. The pain did not radiate to his arm, jaw, shoulder, or ear and was associated with nausea but no vomiting. He also reports increased sweating. The pain is improved with rest. He managed to get through the work day and got home around 3 PM. He slept until 7 PM when he woke up and had dinner and went back to sleep. The next day he went back to work and the chest pain began again. He got home and rested for a while but he is 23 year old daughter strongly encouraged him to present to the ED. At the time of exam, patient no longer has chest pain and is not short of breath. He is breathing comfortably on room air. SBP in the mid 180's. Patient denies fever/chills, headache, vision changes, upper respiratory symptoms, ear pain, sore throats, sinus pain, abdominal pain, constipation, diarrhea, new muscle aches, dysuria. He has noticed increased swelling in his legs bilaterally as well as numbness of his left forearm and hand. In addition , he has occasional shortness of breath that is associated with his weight but nothing more than usual. He does wake up gasping for air sometimes. Notably, patient was diagnosed with hypertension in late 2015 and was admitted to the family medicine service in March 2016. He was discharged with hydralazine and amlodipine but has not taken those medications since shortly after discharge because he could not afford them. - Diagnosis (1) Hypertensive emergency (2) Chest pain (3) Acute kidney injury (4) Edema, peripheral (5) Elevated AST (SGOT) (6) Anemia (7) Obesity, Class III, BMI 40-49.9 (morbid obesity) (8) Drug abuse, daily use (9) DVT prophylaxis Review of Systems All other systems reviewed negative except as stated in HPI Constitutional: Reports excessive sweating, Denies body ache(s), Denies chills, Denies fever(s), Denies headache(s) Eyes: Denies blurry vision, Denies change in vision Ears, Nose, Mouth, and Throat: Denies ear pain, Denies headache(s) Cardiovascular: Reports chest pain, Reports chest pain with activity Respiratory: Denies cough, Denies shortness of breath Gastrointestinal: Denies abdominal pain Genitourinary: Denies blood in urine, Denies difficulty urinating Musculoskeletal: Reports numbness, Denies back pain, Denies joint pain, Denies muscle weakness Skin/Breast: Denies itching, Denies rash PMFSH - History History Provided By: Patient - Medical / Surgical Hx Neg / Unobtainable Surgical History: No Previous Surgery - Medical History Medical History: Medical History (Last Reviewed 11/20/17 @ 20:05 by Dara Beth) History of angina Hypertension - Family History Family History: Family History (Last Updated 11/21/17 @ 00:12 by Desiree Ho MD, R3) Uncle Family history of diabetes mellitus Mother Family history of hypertension - Tobacco History Second Hand Smoke Exposure: Yes Smoking Status: Never smoker - Alcohol History How Often Do You Have a Drink Containing Alcohol: 2 to 4 times a month - Substance Use History Substance History: Active Abuse - Substance Use Type Marijuana Status: Active Route Used: Inhalation Frequency: occasional Reason for Use: Get High - Travel History Recent Travel in the [place] Within the Last 8 Weeks: No Recent Travel Out of the Country Within the Last 8 Weeks: No - Immunization History Tetanus Immunization: Unsure Hx Influenza Vaccine This Season: No Medications and Allergies Active Medications: Active Medications Diltiazem HCl 125 mg/ Sodium (Chloride) 125 mls @ 5 mls/hr IV.CONT TITRATE PRN ; Protocol PRN Reason: Per Protocol Sodium Chloride (Ns Flush) 2 ml IV.FLUSH UNSCH PRN PRN Reason: FLUSH AFTER USING IV ACCESS Sodium Chloride (Ns Flush) 2 ml IV.FLUSH BID KEYON Sodium Chloride (Ns Flush) 2 ml IV.FLUSH PRN PRN PRN Reason: FLUSH AFTER USING IV ACCESS Allergies Allergy/AdvReac Type Severity Reaction Status Date / Time No Known Allergies Allergy Unverified 11/20/17 19:09 Home Medications Medication Instructions Recorded Confirmed Type No Known Home Medications 11/20/17 11/20/17 History Exam Vital signs: Vital Signs 11/20/17 19:10 11/20/17 19:49 11/20/17 20:01 Temperature 98.0 F Pulse Rate 94 H 86 88 Respiratory Rate 16 20 Blood Pressure 183/115 H 198/123 H Pulse Oximetry 97 98 98 11/20/17 21:25 Temperature Pulse Rate 75 Respiratory Rate 18 Blood Pressure 187/119 H Pulse Oximetry 96 Intake & Output 11/20/17 11/20/17 11/21/17 06:59 18:59 06:59 Weight 145.15 kg Narrative: GENERAL: Well-nourished, well-developed obese patient. No acute distress SKIN: Warm and dry. No rash. Skin on his feet is very dry bilaterally EYES: No scleral icterus. No injection or drainage. PERRLA. EOMI. HENT: Normocephalic. Atraumatic. Tympanic membranes clear with normal bony landmarks. MMM. OP Benign. NECK: Supple, trachea midline. No JVD or lymphadenopathy. CARDIOVASCULAR: Heart sounds are regular rate and rhythm without obvious murmurs , gallops, or rubs but distant due to body habitus. RESPIRATORY: Breath sounds equal bilaterally. No accessory muscle use. CTAB. GASTROINTESTINAL: Abdomen soft, obese, non-tender, nondistended. BS WNL. MUSCULOSKELETAL: No cyanosis, 1+ pitting edema to his knees. Strength 5/5 in all extremities. NEURO/PSYCH: Afocal. Awake, alert, and oriented x3. Cranial nerves I-XII grossly intact Results - Labs Result diagrams: 11/20/17 20:08 11/20/17 20:08 Abnormal lab results 11/20/17 11/20/17 11/20/17 Range/Units 20:08 20:08 20:08 RBC 4.23 L (4.50-5.90) mil/mm3 Hgb 11.9 L (13.0-17.0) gm/dL Hct 35.5 L (39.0-51.0) % [place] % (Auto) 8.6 H (0.0-8.0) % Eos % (Auto) 4.1 H (0.0-4.0) % Creatinine 1.37 H (0.60-1.30) mg/dL Estimated GFR 68 L (>89) mL/min Calcium 8.2 L (8.5-10.1) mg/dL AST 40 H (15-37) U/L B-Natriuretic Peptide 161 H (0-100) pg/mL Short CBC 11/20/17 Range/Units 20:08 WBC 8.1 (4.0-11.0) th/mm3 Hgb 11.9 L (13.0-17.0) gm/dL Hct 35.5 L (39.0-51.0) % Plt Count 241 (150-450) th/mm3 BMP 11/20/17 20:08 Sodium 141 Potassium 3.6 Chloride 105 Carbon Dioxide 29.6 BUN 12 Creatinine 1.37 H Calcium 8.2 L Cardiac Enzymes 11/20/17 Range/Units 20:08 Troponin I 0.05 (0.02-0.05) ng/mL Liver Function 11/20/17 Range/Units 20:08 Total Bilirubin 0.4 (0.2-1.0) mg/dL AST 40 H (15-37) U/L ALT 60 (12-78) U/L Alkaline Phosphatase 72 (45-117) U/L Albumin 3.7 (3.4-5.0) g/dL - Imaging Impressions Chest X-Ray 11/20/17 19:52 CONCLUSION: No acute findings. Caprini VTE Risk Assessment Caprini VTE Risk Assessment: Moderate/High Risk (score >= 2) Caprini Risk Assessment Model: Point Value = 1 Point Value = 2 Point Value = 3 Point Value = 5 Age 41-60 Minor surgery BMI > 25 kg/m2 Swollen legs Varicose veins or History of unexplained or recurrent spontaneous Oral contraceptives or hormone replacement Sepsis (< 1 month) Serious lung disease, including pneumonia (< 1 month) Abnormal pulmonary function Acute myocardial infarction Congestive heart failure (< 1 month) History of inflammatory bowel disease Medical patient at bed rest Age 61-74 Arthroscopic surgery Major open surgery (> 45 min) Laparoscopic surgery (> 45 min) Malignancy Confined to bed (> 72 hours) Immobilizing plaster cast Central venous access Age >= 75 History of VTE Family history of VTE Factor V Leiden Prothrombin [id number] Lupus anticoagulant Anticardiolipin antibodies Elevated serum homocysteine Heparin-induced thrombocytopenia Other congenital or acquired thrombophilia Stroke (< 1 month) Elective arthroplasty Hip, pelvis, or leg fracture Acute spinal cord injury (< 1 month) Prophylaxis Regimen: Total Risk Factor Score Risk Level Prophylaxis Regimen 0-1 Low Early ambulation 2 Moderate Order ONE of the following: *Sequential Compression Device (SCD) *Heparin 5000 units SQ BID 3-4 Higher Order ONE of the following medications: *Heparin 5000 units SQ TID *Enoxaparin/Lovenox 40 mg SQ daily (WT < 150 kg, CrCl > 30 mL/min) *Enoxaparin/Lovenox 30 mg SQ daily (WT < 150 kg, CrCl > 10-29 mL/min) *Enoxaparin/Lovenox 30 mg SQ BID (WT < 150 kg, CrCl > 30 mL/min) AND/OR *Sequential Compression Device (SCD) 5 or more Highest Order ONE of the following medications: *Heparin 5000 units SQ TID (Preferred with Epidurals) *Enoxaparin/Lovenox 40 mg SQ daily (WT < 150 kg, CrCl > 30 mL/min) *Enoxaparin/Lovenox 30 mg SQ daily (WT < 150 kg, CrCl > 10-29 mL/min) *Enoxaparin/Lovenox 30 mg SQ BID (WT < 150 kg, CrCl > 30 mL/min) AND *Sequential Compression Device (SCD) Assessment and Plan - Assessment (1) Hypertensive emergency Code(s): I16.1 - Hypertensive emergency Status: Acute Plan: -BP elevated on admission up to 203 systolic -Received 50 mg metoprolol p.o. and SBP dropped to the 180's -Plan to reduce SBP by 20% in 24 hours [around 160] -Continue metoprolol at 25 mg p.o. every 6 hours -Hydralazine 10 mg p.o. every 6 hours as needed for SBP greater than 200 -Low threshold to start Cardizem IV/drip if BP is still elevated on oral medications (2) Chest pain Code(s): R07.9 - Chest pain, unspecified Status: Acute Plan: -Atypical in nature; likely secondary to elevated BP -Initial troponin wnl; will trend x 2 with EKG -EKG shows NSR with possible first degree AV block, signs of hypertrophy and borderline LAD, no ACS signs on my interpretation -CXR shows no acute cardiopulmonary disease but cardiomegaly on my read -Responded to nitroglycerin ointment - will administer if needed -Received Aspirin 324mg in the ED - will continue daily aspirin 81mg daily -Check 2D echo -Check TSH and lipid panel -Recommend a nuclear stress test to rule out ischemic heart disease - pt could not be admitted to the chest pain center due to his elevated BP (3) Acute kidney injury Code(s): N17.9 - Acute kidney failure, unspecified Status: Acute Plan: -Creatinine elevated at 1.37 -Baseline 1.24 in March 2016 -Possibly related to early heart failure -Will follow with daily BMP -Avoid nephrotoxic agents (4) Edema, peripheral Code(s): R60.9 - Edema, unspecified Status: Acute Plan: -Onset in the last 2-3 weeks per patient -In the setting of KENNEDY and BNP of 161 with cardiomegaly on CXR, suspect CHF -No shortness of breath complaints -Oral fluids only at this time -See plan for chest pain above (5) Elevated AST (SGOT) Code(s): R74.0 - Nonspecific elevation of levels of transaminase and lactic acid dehydrogenase [LDH] Status: Acute Plan: -Isolated slightly elevated AST of 40 -Will repeat CMP in the am -Consider hepatitis panel or repeat as outpatient if still elevated (6) Anemia Code(s): D64.9 - Anemia, unspecified Status: Acute Plan: -Anemia noted with H/H of 11.9/35.5 -Will monitor for now -Consider iron studies as an outpatient (7) Obesity, Class III, BMI 40-49.9 (morbid obesity) Code(s): E66.01 - Morbid (severe) obesity due to excess calories Status: Acute Plan: -BMI of 42.2 with clinical symptoms of obstructive sleep apnea -Discussed weight loss -Recommend sleep study as outpatient -Nutrition consult (8) Drug abuse, daily use Code(s): F19.10 - Other psychoactive substance abuse, uncomplicated Status: Acute Plan: -Pt reports almost daily marijuana use -Will check UDS (9) DVT prophylaxis Status: Acute Plan: -Heparin 5000 units subq every 8h - Assessment and Plan F: oral fluids only E: Will monitor and replace as needed N: cardiac diet Constipation prophylaxis if needed Compazine for nausea Tylenol for pain/fever Case management consult to assist with procuring medications. Pt is self-pay and needs to establish with a PCP Discussed Condition With: Seen and examined with Dr. Kwon, PGY1 Discussed with ED attending WDW with medicine attending Discharge Planning: Plan to discharge home when patient's BP is stabilized on oral medications. (2) Chest pain Qualifiers: Chest pain type: unspecified Qualified Code(s): R07.9 - Chest pain, unspecified (6) Anemia Qualifiers: Anemia type: unspecified type Qualified Code(s): D64.9 - Anemia, unspecified
[2017-11-20] MEDS ORDERED: Metoprolol Tartrate 25 MG Tablet PO ONE (22:51)
[2017-11-20] MEDS ORDERED: Acetaminophen 325 MG Tablet PO PRN (23:02)
[2017-11-20] MEDS ORDERED: hydrALAZINE 10 MG Tablet PO PRN (23:05)
[2017-11-21 00:03] LABS: Chol/HDL Ratio 4.28 Ratio; HDL Cholesterol 43.4 mg/dL (40.0-60.0); Thyroid Stimulating Hormone 0.917 uIU/mL (0.358-3.740)
[2017-11-21] MEDS: Heparin - SQ 10,000 UNITS/ML Vial SQ SCH ×2 (01:48→05:43)
[2017-11-21 02:37] LABS: Alanine Aminotransferase 55 U/L (12-78); Albumin 3.3 g/dL (3.4-5.0); Anion Gap 7 meq/L (5-15); Aspartate Aminotransferase 32 U/L (15-37); Blood Urea Nitrogen 12 mg/dL (7-18); Calcium 8.2 mg/dL (8.5-10.1); Carbon Dioxide 30.3 meq/L (21.0-32.0); Chloride 105 meq/L (98-107); Glomerular Filtration Rate 72 mL/min (>89); Glucose,Random 115 mg/dL (74-106); Potassium 3.4 meq/L (3.5-5.1); Sodium 142 meq/L (136-145)
[2017-11-21 02:41] LABS: Alkaline Phosphatase 71 U/L (45-117); Total Protein 7.5 g/dL (6.4-8.2); Troponin I 0.05 ng/mL (0.02-0.05)
[2017-11-21] MEDS: Metoprolol Tartrate 25 MG Tablet PO SCH ×3 (03:28→12:19)
[2017-11-21] MEDS ORDERED: Potassium Chloride 10 MEQ ER Capsule PO ONE (04:49)
[2017-11-21 08:33] VITALS: RESP 18
[2017-11-21] MEDS ORDERED: Senna/Docusate Sodium 8.6/50 MG Tablet PO SCH (09:00)
[2017-11-21] MEDS ORDERED: amLODIPine 10 MG Tablet PO SCH (09:00)
--- NOTE | 2017-11-21 10:45 | P.PNFP ---
Subjective Interval history: This patient was seen this morning with the entire medicine B team. He is a 47- year-old -[place] male who has had uncontrolled hypertension for 2 years. He presented with chest pain centrally and some edema of both lower extremities. On presentation, his blood pressure was 200/120. Review of the records indicate that he was placed on amlodipine and hydralazine in 2017 x 1 of our medicine team here but he was nonadherent due to cost. He does use marijuana on a daily basis. He does have local family, does not drive. Please see history and physical examination for this admission for additional historical details including past, family, social history and review of systems at the time of admission. This morning, he has no difficulty with vision no chest pain no shortness of breath his legs and feet feel better and he feels good enough to go home. He states that he understands the severity of his high blood pressure in that it could easily lead to heart attack or stroke if he were to remain non-adherent to his medical regimen. He is strongly urged to get a physician and to follow- up as a one-time hospital follow-up visit with the [facility]. He was given our card and the names of the physicians caring for him. Results - Labs Result diagrams: 11/20/17 20:08 11/21/17 01:59 Abnormal lab results 11/20/17 11/20/17 11/20/17 Range/Units 20:08 20:08 20:08 RBC 4.23 L (4.50-5.90) mil/mm3 Hgb 11.9 L (13.0-17.0) gm/dL Hct 35.5 L (39.0-51.0) % [place] % (Auto) 8.6 H (0.0-8.0) % Eos % (Auto) 4.1 H (0.0-4.0) % Potassium (3.5-5.1) meq/L Creatinine 1.37 H (0.60-1.30) mg/dL Estimated GFR 68 L (>89) mL/min Random Glucose (74-106) mg/dL Calcium 8.2 L (8.5-10.1) mg/dL AST 40 H (15-37) U/L B-Natriuretic Peptide 161 H (0-100) pg/mL Albumin (3.4-5.0) g/dL LDL Cholesterol, Calc (0-99) mg/dL 11/20/17 11/21/17 11/21/17 Range/Units 23:15 01:59 01:59 RBC (4.50-5.90) mil/mm3 Hgb (13.0-17.0) gm/dL Hct (39.0-51.0) % [place] % (Auto) (0.0-8.0) % Eos % (Auto) (0.0-4.0) % Potassium 3.4 L (3.5-5.1) meq/L Creatinine (0.60-1.30) mg/dL Estimated GFR 72 L (>89) mL/min Random Glucose 115 H (74-106) mg/dL Calcium 8.2 L (8.5-10.1) mg/dL AST (15-37) U/L B-Natriuretic Peptide 167 H (0-100) pg/mL Albumin 3.3 L (3.4-5.0) g/dL LDL Cholesterol, Calc 122 H (0-99) mg/dL Short CBC 11/20/17 Range/Units 20:08 WBC 8.1 (4.0-11.0) th/mm3 Hgb 11.9 L (13.0-17.0) gm/dL Hct 35.5 L (39.0-51.0) % Plt Count 241 (150-450) th/mm3 BMP 11/20/17 11/21/17 20:08 01:59 Sodium 141 142 Potassium 3.6 3.4 L Chloride 105 105 Carbon Dioxide 29.6 30.3 BUN 12 12 Creatinine 1.37 H 1.30 Calcium 8.2 L 8.2 L Cardiac Enzymes 11/20/17 11/20/17 11/21/17 Range/Units 20:08 23:15 01:59 Troponin I 0.05 0.05 0.05 (0.02-0.05) ng/mL Liver Function 11/20/17 11/21/17 Range/Units 20:08 01:59 Total Bilirubin 0.4 0.6 (0.2-1.0) mg/dL AST 40 H 32 (15-37) U/L ALT 60 55 (12-78) U/L Alkaline Phosphatase 72 71 (45-117) U/L Albumin 3.7 3.3 L (3.4-5.0) g/dL - Imaging Impressions Chest X-Ray 11/20/17 19:52 CONCLUSION: No acute findings. Physical Exam Vital signs: Vital Signs 11/20/17 19:10 11/20/17 19:49 11/20/17 20:00 Temperature 98.0 F Pulse Rate 94 H 86 Respiratory Rate 16 20 Blood Pressure 183/115 H 198/123 H Pulse Oximetry 97 98 97 11/20/17 20:01 11/20/17 21:25 11/20/17 22:29 Temperature Pulse Rate 88 75 70 Respiratory Rate 18 26 H Blood Pressure 187/119 H 188/118 H Pulse Oximetry 98 96 96 11/20/17 22:30 11/21/17 00:00 11/21/17 01:00 Temperature 98.1 F Pulse Rate 72 74 69 Respiratory Rate 22 20 Blood Pressure 184/107 H 149/109 H Pulse Oximetry 96 97 11/21/17 04:00 11/21/17 07:00 11/21/17 08:00 Temperature 98.1 F 98.1 F Pulse Rate 76 70 79 Respiratory Rate 20 18 Blood Pressure 150/113 H 155/88 H Pulse Oximetry 96 98 11/21/17 09:00 11/21/17 10:00 Temperature Pulse Rate 74 76 Respiratory Rate Blood Pressure Pulse Oximetry Intake & Output 11/20/17 11/21/17 11/21/17 18:59 06:59 18:59 Intake Total 240 / 240 Output Total 450 / 450 Balance -210 / -210 Weight 162.4 kg Intake: Oral 240 / 240 Output: Urine 450 / 450 Other: Date of Last Bowel Movement 11/19/17 - Constitutional no acute distress, morbidly obese - Routine HEENT Exam Head: Present: normocephalic, atraumatic Eye: Present: EOMI, PERRL, conjunctivae pink. Absent: scleral injection ENT: Present: mucous membranes moist, dentition normal - Routine Neck Exam Present: supple. Absent: lymphadenopathy - Routine Respiratory Exam Present: CTA bilaterally. Absent: accessory muscle use - Routine Cardiovascular Exam Present: RRR. Absent: murmur - Routine Abdominal Exam Present: soft, normoactive bowel sounds - Routine Extremities Exam Present: edema (Trace). Absent: cyanosis, clubbing - Routine Skin Exam Present: intact. Absent: cyanosis, erythema - Routine Neurological Exam Present: alert, oriented X3, CN II-XII intact, normal speech - Detailed Neurological Exam: Coma Scale Eye Opening: Spontaneous Verbal Response: Oriented Motor Response: Obey commands [place] Coma Scale Total: 15 - Routine Psychiatric Exam Present: normal affect Assessment and Plan - Assessment (1) Hypertensive emergency Code(s): I16.1 - Hypertensive emergency Status: Acute Plan: -BP elevated on admission up to 203 systolic -Received 50 mg metoprolol p.o. and SBP dropped to the 180's -Plan to reduce SBP by 20% in 24 hours [around 160] -Continue metoprolol at 25 mg p.o. every 6 hours -Hydralazine 10 mg p.o. every 6 hours as needed for SBP greater than 200 -Low threshold to start Cardizem IV/drip if BP is still elevated on oral medications (2) Chest pain Code(s): R07.9 - Chest pain, unspecified Status: Resolved Plan: -Atypical in nature; likely secondary to elevated BP -Initial troponin wnl; will trend x 2 with EKG -EKG shows NSR with possible first degree AV block, signs of hypertrophy and borderline LAD, no ACS signs on my interpretation -CXR shows no acute cardiopulmonary disease but cardiomegaly on my read -Responded to nitroglycerin ointment - will administer if needed -Received Aspirin 324mg in the ED - will continue daily aspirin 81mg daily -Check 2D echo -Check TSH and lipid panel -Recommend a nuclear stress test to rule out ischemic heart disease - pt could not be admitted to the chest pain center due to his elevated BP (3) Acute kidney injury Code(s): N17.9 - Acute kidney failure, unspecified Status: Acute Plan: -Creatinine elevated at 1.37 -Baseline 1.24 in March 2016 -Possibly related to early heart failure -Will follow with daily BMP -Avoid nephrotoxic agents (4) Edema, peripheral Code(s): R60.9 - Edema, unspecified Status: Chronic Plan: -Onset in the last 2-3 weeks per patient -In the setting of KENNEDY and BNP of 161 with cardiomegaly on CXR, suspect CHF -No shortness of breath complaints -Oral fluids only at this time -See plan for chest pain above (5) Elevated AST (SGOT) Code(s): R74.0 - Nonspecific elevation of levels of transaminase and lactic acid dehydrogenase [LDH] Status: Acute Plan: -Isolated slightly elevated AST of 40 -Will repeat CMP in the am -Consider hepatitis panel or repeat as outpatient if still elevated (6) Anemia Code(s): D64.9 - Anemia, unspecified Status: Chronic Plan: -Anemia noted with H/H of 11.9/35.5 -Will monitor for now -Consider iron studies as an outpatient (7) Obesity, Class III, BMI 40-49.9 (morbid obesity) Code(s): E66.01 - Morbid (severe) obesity due to excess calories Status: Acute Plan: -BMI of 42.2 with clinical symptoms of obstructive sleep apnea -Discussed weight loss -Recommend sleep study as outpatient -Nutrition consult (8) Drug abuse, daily use Code(s): F19.10 - Other psychoactive substance abuse, uncomplicated Status: Acute Plan: -Pt reports almost daily marijuana use -Will check UDS (9) DVT prophylaxis Status: Acute Plan: -Heparin 5000 units subq every 8h - Assessment and Plan F: oral fluids only E: Will monitor and replace as needed N: cardiac diet Constipation prophylaxis if needed Compazine for nausea Tylenol for pain/fever Case management consult to assist with procuring medications. Pt is self-pay and needs to establish with a PCP Discussed Condition With: Medicine B team Discharge Planning: Anticipate discharge today with one-time hospital follow-up visit at the [facility]. Chest x-ray and echocardiogram pending prior to discharge. - Attending Attestation This patient was seen, examined and discussed with the entire medicine team, please see orders. I agree with the plan. (2) Chest pain Qualifiers: Chest pain type: unspecified Qualified Code(s): R07.9 - Chest pain, unspecified (6) Anemia Qualifiers: Anemia type: unspecified type Qualified Code(s): D64.9 - Anemia, unspecified
[2017-11-21 10:49] LABS: Hematocrit 36.5 % (39.0-51.0); Hemoglobin 12.2 gm/dL (13.0-17.0); Mean Corpuscular HGB Conc 33.4 % (32.0-36.0); Mean Corpuscular Hemoglobin 27.7 pg (27.0-34.0); Mean Corpuscular Volume 83.2 fL (80.0-100.0); Mean Platelet Volume 8.2 fL (7.0-11.0); Platelet Count 255 th/mm3 (150-450); Red Blood Count 4.39 mil/mm3 (4.50-5.90); Red Cell Distribution Width 15.6 % (11.6-17.2); White Blood Count 7.9 th/mm3 (4.0-11.0)
--- NOTE | 2017-11-21 11:02 | XR ---
EXAM DATE: 11/21/2017 10:55 AM EDT AGE/SEX: 47 years / Male INDICATIONS: . Short of breath, lower extremity edema. CLINICAL DATA: This is the patient's subsequent encounter. Patient reports that signs and symptoms h ave been present for 2 days and indicates a pain score of 0/10. MEDICAL/SURGICAL HISTORY: Hypertension. Angina. None. COMPARISON: [facility] [place], CHEST 1V SINGLE AP, 11/20/2017. . FINDINGS: Mild diffuse interstitial prominence without significant new focal pleural or parenchymal opacities. Cardiac silhouette is mildly enlarged. Bony thorax is intact. CONCLUSION: 1. Cardiomegaly with mild positive fluid balance. Electronically signed by: Yuan Sanchez MD 11/21/2017 11:01 AM EDT
[2017-11-21 11:25] LABS: Amphetamine Screen,Urine Neg (Neg); Barbiturate Screen,Urine Neg (Neg); Cannabinoid Screen,Urine Pos (Neg); Cocaine Screen,Urine Neg (Neg)
[2017-11-21 11:36] LABS: Opiate Screen,Urine Neg (Neg)
[2017-11-21 12:35] VITALS: BP 153/99; TEMP 97.8; O2SAT 96
[2017-11-21 13:40] LABS: Hemoglobin A1c 6.1 % (4.3-6.0)
--- NOTE | 2017-11-21 13:51 | ECHRPT ---
Indication: Chest Pain CONCLUSIONS Normal left ventricular size. Mild concentric left ventricular hypertrophy. The left ventricular systolic function is normal with an estimated ejection fraction in the range of 55-60%. The left atrial size is mildly dilated. Trace mitral valve regurgitation. Trace aortic valve regurgitation. There is trace tricuspid valve regurgitation. The estimated pulmonary arterial pressure is 34 mmHg. Trivial pulmonary valve regurgitation. The inferior vena cava is dilated. BP: / HR: Rhythm: MEASUREMENTS (Male / Female) Normal Values Technical Quality:Fair 2D ECHO LV Diastolic Diameter PLAX 5.0 cm 4.2 - 5.9 / 3.9 - 5.3 cm LV Systolic Diameter PLAX 3.8 cm IVS Diastolic Thickness 1.4 cm 0.6 - 1.0 / 0.6 - 0.9 cm LVPW Diastolic Thickness 1.3 cm 0.6 - 1.0 / 0.6 - 0.9 cm LV Relative Wall Thickness 0.6 RV Internal Dim ED PLAX 4.4 cm LVOT Diameter 2.1 cm Aortic Root Diameter 2.8 cm LA Systolic Diameter LX 4.1 cm 3.0 - 4.0 / 2.7 - 3.8 cm M-MODE AV Cusp Separation MM 2.3 cm DOPPLER AV Peak Velocity 110.0 cm/s AV Peak Gradient 4.8 mmHg LVOT Peak Velocity 87.7 cm/s LVOT Peak Gradient 3.1 mmHg AV Area Cont Eq pk 2.8 cm Mitral E Point Velocity 118.0 cm/s Mitral A Point Velocity 39.5 cm/s Mitral E to A Ratio 3.0 LV E' Lateral Velocity 7.3 cm/s Mitral E to LV E' Lateral Ratio 16.1 LV E' Septal Velocity 7.0 cm/s Mitral E to LV E' Septal Ratio 16.8 TR Peak Velocity 244.0 cm/s TR Peak Gradient 23.8 mmHg Right Atrial Pressure 10.0 mmHg Pulmonary Artery Systolic Pressu 33.8 mmHg Right Ventricular Systolic Press 33.8 mmHg PV Peak Velocity 94.5 cm/s PV Peak Gradient 3.6 mmHg FINDINGS LEFT VENTRICLE Normal left ventricular size. Mild concentric left ventricular hypertrophy. The left ventricular systolic function is normal with an estimated ejection fraction in the range of 55-60%. RIGHT VENTRICLE Normal right ventricular size and systolic function. LEFT ATRIUM The left atrial size is mildly dilated. RIGHT ATRIUM The right atrial size is normal. ATRIAL SEPTUM Normal atrial septal thickness without atrial level shunting by limited color doppler interrogation. AORTA The aortic root and proximal ascending aorta are normal in size on limited imaging. MITRAL VALVE Trace mitral valve regurgitation. AORTIC VALVE Trileaflet aortic valve. Trace aortic valve regurgitation. TRICUSPID VALVE There is trace tricuspid valve regurgitation. The estimated pulmonary arterial pressure is 34 mmHg. PULMONARY VALVE Trivial pulmonary valve regurgitation. VESSELS The inferior vena cava is dilated. PERICARDIUM No pericardial effusion. Javier Fonseca MD, FACC (Electronically Signed) Final Date:21 November 2017 13:50
[2017-11-21 14:57] VITALS: PULSE 74
--- NOTE | 2017-11-22 12:57 | ECG ---
Date Performed: 11/21/2017 Time Performed: 02:02:06 PTAGE: 47 years EKG: Sinus rhythm with PAC(s) Prolonged QT interval Possible septal infarct - age undetermined Lateral T wave changes may be due to myocardial ischemia Abnormal ECG PREVIOUS TRACING : 11/20/2017 23.19 Compared to previous tracing, lateral T wave changes sligh tly more prominent DOCTOR: Jusdon Cabrera Interpretating Date/Time 11/22/2017 12:56:57
--- NOTE | 2017-11-22 13:04 | ECG ---
Date Performed: 11/20/2017 Time Performed: 23:19:37 PTAGE: 47 years EKG: Sinus rhythm WITH OCCASIONAL SUPRAVENTRICULAR PREMATURE COMPLEXES BORDERLINE LEFT AXIS DEVIATION MODERATE T-WAVE ABNORMALITY, CONSIDER LATERAL ISCHEMIA ABNORMAL ECG PREVIOUS TRACING : 11/20/2017 23.17 Since the previous tracing, no significant change noted DOCTOR: Judson Cabrera Interpretating Date/Time 11/22/2017 13:02:52
--- NOTE | 2017-11-22 13:11 | ECG ---
Date Performed: 11/20/2017 Time Performed: 19:31:52 PTAGE: 47 years EKG: Sinus rhythm WITH FIRST DEGREE AV BLOCK WITH OCCASIONAL SUPRAVENTRICULAR PREMATURE COMPLEXES BORDERLINE LEFT AXIS DEVIATION NONSPECIFIC T-WAVE ABNORMALITY PROLONGED QT INTERVAL ABNORMAL ECG PREVIOUS TRACING : 03/20/2016 13.48 Compared to previous tracing, QTc mildly longer than previ ous DOCTOR: Judson Cabrera Interpretating Date/Time 11/22/2017 13:10:51
== END 2017-11-21 15:16 | disposition home or self-care (01) ==
LOC: NEPE 18:43 → INTOOBSV 21:38 → NEDA 21:38 → HCIS 11-21 00:43
PROVIDERS: ADMIT Family Medicine; ATTEND Family Medicine